=== PATIENT | female | born 1975 | race Caucasian/White ===

== ENCOUNTER 2017-10-10 11:32 | Emergency (ER) | payer OTHER, SELFPAY ==
[2017-10-10 12:25] LABS: #Eosinphils 0.1 thou/uL (0.0-0.7); #Lymphocytes 1.5 thou/uL (1.20-3.40); #Monocytes 0.3 thou/uL (0.11-0.59); #Neutrophils 5.4 thou/uL (1.40-6.50); %Basophils 0.3 % (0.0-1.0); %Eosinophils 1.7 % (0.0-10.0); %Lymphocytes 20.8 % (21.0-51.0); %Monocytes 4.3 % (0.0-10.0); %Neutrophils 72.9 % (42.0-75.0); Hemoglobin 13.8 g/dL (12.0-16.0); Mean Corpuscular HGB CONC 32.8 g/dL (32.0-36.0); Mean Corpuscular Hemoglobin 28.3 pg (27.0-31.0); Mean Corpuscular Volume 86.4 fl (81.0-99.0); Mean Platelet Volume 8.8 fL (7.4-10.4); Platelet Count 323 thou/uL (130-400); RBC Distribution Width 13.4 % (11.5-14.5); Red Blood Cell (RBC) Count 4.86 mill/uL (4.20-5.40); White Blood Cell (WBC) Count 7.4 thou/uL (4.8-10.8)
[2017-10-10] MEDS ORDERED: Mag-Al 1200 mg/1200 mg/30 ML UDCUP ONE (12:30)
[2017-10-10] MEDS ORDERED: Lidocaine Viscous Sol 2% 15 ml UD Cup ONE (12:30)
[2017-10-10 12:39] LABS: CKMB 0.7 ng/mL (0-6.6); Troponin I Less than 0.010 ng/mL (< 0.028)
[2017-10-10] MEDS ORDERED: Lidocaine 2% Viscous Solution 20 ML, Aluminum & Magnesium Hydroxide 30 ML, Donnatal Eli... SSW SCH ×2 (12:45→13:00)
[2017-10-10 12:54] LABS: ALT (SGPT) 11 U/L (8-55); AST (SGOT) 15 U/L (5-34); Albumin 4.9 g/dL (3.5-5.0); Alkaline Phosphatase 86 U/L (40-150); Anion Gap 16 mmol/L (10-20); BUN (Urea Nitrogen) 6 mg/dL (7.0-18.7); Bilirubin, Total 0.4 mg/dL (0.2-1.2); CK (CPK) 107 U/L (29-168); Calc. Creatinine Clearance 0 mL/min (70-130); Calcium 9.4 mg/dL (7.8-10.44); Carbon Dioxide 21 mmol/L (22-29); Chloride 107 mmol/L (98-107); Estimated GFR-MDRD 81; Glucose 91 mg/dL (70-105); Lipase 28 U/L (8-78); Potassium 4.7 mmol/L (3.5-5.1); Protein, Total 7.9 g/dL (6.0-8.3); Sodium 139 mmol/L (136-145)
--- NOTE | 2017-10-10 13:01 | RAD ---
PORTABLE AP CHEST XRAY: DATE: 10/10/17. HISTORY: Chest pain and epigastric pain. Pain radiates to an area between the shoulder blades. COMPARISON: None available. FINDINGS: Cardiac silhouette and pulmonary vasculature within normal limits for the portable technique of the [facility]. The lungs are clear. Osseous structures are intact. IMPRESSION: No acute cardiopulmonary process. POS: [facility]
[2017-10-10] MEDS ORDERED: Pantoprazole 40 MG VIAL ONE (14:58)
--- NOTE | 2017-10-10 15:04 | CT ---
CT PULMONARY ANGIOGRAM WITH IV CONTRAST AND 3D POSTPROCESSING: HISTORY: Chest pain. FINDINGS: No filling defects are seen in the contrast-opacified central pulmonary arterial vasculature. Periph eral pulmonary arterial vasculature cannot be satisfactorily evaluated due to inadequate opacificatio n. The thoracic aorta is well opacified without aneurysm or dissection. No pleural or pericardial e ffusions are seen. No pneumothoraces, lobar consolidation, or lung mass is seen. There are mild pat kym ground-glass infiltrates in the lower lung nolan. No acute osseous abnormalities are seen. IMPRESSION: No CT evidence of central pulmonary embolism. POS: [facility]
== END 2017-10-10 15:17 | disposition home or self-care (01) ==
LOC: ERS 11:32
DX: R07.9 Chest pain, unspecified (principal); F32.9 Major depressive disorder, single episode, unspecified; F17.290 Nicotine dependence, other tobacco product, uncomplicated; K21.9 Gastro-esophageal reflux disease without esophagitis; Z87.442 Personal history of urinary calculi; Z79.899 Other long term (current) drug therapy
CPT/HCPCS: 36415; 71045; 71275; 80053; 82553; 83690; 83880; 84484; 85025; 85379; 93005; 96361; 96374; C9113